=== PATIENT | male | born 1950 | race Caucasian/White ===

== ENCOUNTER → 2022-07-06 | Outpatient (CLI) | payer MEDICARE ==
[~2022-07-06] MED LIST: LIDOCAINE 1% INJ 30 ML (XYLOCAINE) VIAL INJ ONE
[2022-07-06 12:11] LABS: INR 1.1 (0.8-1.4); PROTHROMBIN TIME PATIENT 14.9 SEC (12.2-14.7)
[2022-07-06 12:17] LABS: ALBUMIN 3.1 GM/DL (3.2-4.5); TOTAL PROTEIN 6.5 GM/DL (6.4-8.2)
[2022-07-06 12:40] VITALS: BP 111/70
[2022-07-06 12:50] VITALS: BP 114/76
--- NOTE | 2022-07-06 12:58 | Diagnostic Imaging Report ---
INDICATION: A left-sided pleural effusion. Patient presents for ultrasound-guided thoracentesis. Patient brought to the procedure room and placed on the bed in the sitting upright position slightly leaned over. Ultrasound imaging of the left posterior thorax was performed to evaluate appropriate entry site. Left posterior thorax was then prepped and draped in usual sterile fashion. Small amount 1% lidocaine was utilized for local anesthesia. Overall volume of pleural fluid is very small, less than 100 mL. Therefore, it was decided to only perform a diagnostic thoracentesis. 18-gauge needle was inserted into the posterior thorax on the left and approximately 60 mL of serous pleural fluid was removed which was somewhat blood tinged. Needle was withdrawn and hemostasis was obtained. Patient tolerated procedure well and was sent for postprocedure chest x-ray in satisfactory condition. IMPRESSION: Successful ultrasound guided left-sided thoracentesis obtaining approximately 60 mL of fluid. Dictated by: Dictated on workstation # [id number]
--- NOTE | 2022-07-06 13:08 | Diagnostic Imaging Report ---
INDICATION: Left pleural effusion, status post thoracentesis. TIME OF EXAM: 1:00 p.m. Single view chest radiograph was obtained after patient underwent ultrasound-guided left-sided thoracentesis. There is residual pleural fluid in the left base. No pneumothorax identified, status post thoracentesis. IMPRESSION: No evidence of pneumothorax. Dictated by: Dictated on workstation # [id number]
[2022-07-06 13:37] LABS: BODY FLUID RBC COUNT 0.119 10^6/uL; BODY FLUID WBC TOTAL COUNT 0.315 10^3/uL
[2022-07-06 13:47] LABS: BODY FLUID APPEARENCE MOD CLDY; BODY FLUID COLOR AMBER; BODY FLUID SOURCE PLEURAL
[2022-07-06 14:04] LABS: ALBUMIN,BODY FLUID 1.6 G/DL; BODY FLUID TRIGLYCERIDES 12 MG/DL; GLUCOSE,BODY FLUID 78 MG/DL; LDH,BODY FLUID 158 U/L; TOTAL PROTEIN,BODY FLUID 2.7 G/DL
== END ==
LOC: RAD 11:34
PROVIDERS: ATTEND Internal Medicine Critical Care Medicine
DX: J90 Pleural effusion, not elsewhere classified (principal)
CPT/HCPCS: 32555; 36415; 71045; 82040; 82042; 82465; 82945; 83615; 83986; 84155; 84157; 84478; 85610; 87070; 87101; 87116; 87205; 87206; 89051